=== PATIENT | male | born 1945 | race Caucasian/White ===

== ENCOUNTER 2022-06-09 09:58 | Inpatient (IN) | payer OTHER ==
[~2022-06-09] VITALS: Ht 165.1 cm; Wt 140.0 kg
[~2022-06-09 09:58] MED LIST: ACID REDUCER 1150 MG PO; ALLO100 PO; ATOR20 PO; FURO40 PO; HUMULIN R500 UNIT/1 SQ; LEVSOD100 PO; LOSA50 PO; METF500 PO; TOPROL XL200 MG PO; XARELTO20 MG PO
[2022-06-09 10:31] LABS: BASOPHILS ABSOLUTE AUTO 0.06 K/mm3 (0.00-0.23); BASOPHILS PERCENT AUTO 0 % (0-2); EOSINOPHILS ABSOLUTE AUTO 0.03 K/mm3 (0.00-0.68); EOSINOPHILS PERCENT AUTO 0 % (0-6); Hematocrit 37.2 % (37.0-53.0); IMMATURE GRAN ABSOLUTE AUTO 0.15 K/mm3 (0.00-0.10); IMMATURE GRAN PERCENT AUTO 1 % (0-1); LYMPHOCYTES ABSOLUTE AUTO 1.25 K/mm3 (0.84-5.20); LYMPHOCYTES PERCENT AUTO 6 % (21-46); MONOCYTES ABSOLUTE AUTO 2.33 K/mm3 (0.16-1.47); MONOCYTES PERCENT AUTO 10 % (4-13); Mean Corpuscular HGB 30.8 pg (26.0-34.0); Mean Corpuscular HGB Conc 32.3 g/dL (31.5-36.5); Mean Corpuscular Volume 95 fL (80-100); Mean Platelet Volume 9.9 fL (9.1-12.4); NEUTROPHILS ABSOLUTE AUTO 18.59 K/mm3 (1.96-9.15); NEUTROPHILS PERCENT AUTO 83 % (41-73); Platelet Count 219 K/mm3 (150-400); RDW Standard Deviation 52.6 fL (35.1-46.3); White Blood Cell Count 22.41 K/mm3 (4.00-11.30)
[2022-06-09 10:51] LABS: Source, Urine Clean Catch
[2022-06-09 10:55] LABS: Albumin, Blood 3.2 g/dL (3.4-5.0); Albumin/Globulin Ratio 0.9 (0.8-1.8); Bilirubin, Total 0.6 mg/dL (0.1-1.0); Bun/Creatinine Ratio 31.8 (12.0-20.0); Calcium, Blood 9.7 mg/dL (8.5-10.1); Creatinine, Blood 2.64 mg/dL (0.60-1.20); Globulin, Blood 3.7 g/dL (2.2-4.0); Magnesium, Blood 1.8 mg/dL (1.6-2.4); Potassium, Blood 5.6 mmol/L (3.5-5.5); Total Protein, Blood 6.9 g/dL (6.4-8.2)
[2022-06-09 11:01] LABS: Appearance, Urine Cloudy (Clear); Bilirubin, Urine Neg (Neg); Blood, Urine 4+ (Neg); Color, Urine Yellow (P-Yellow); Glucose Qualitative, Urine Neg (Neg); Ketones, Urine 1+ (Neg); Leukocyte Esterase, Urine 3+ (Neg); Nitrite, Urine Neg (Neg); Protein, Urine 3+ (Neg); Specific Gravity, Urine 1.015 (1.003-1.022); Urobilinogen, Urine NORM (Normal)
[2022-06-09 11:09] LABS: Influenza A, PCR NEGATIVE (NEGATIVE); Influenza B, PCR NEGATIVE (NEGATIVE); Resp Syncytial Virus, PCR NEGATIVE (NEGATIVE); SARS-Cov-2 (COVID-19) PCR, MMC NEGATIVE (NEGATIVE)
[2022-06-09 11:09] LABS: White Blood Cells, Urine 50-100 /hpf (0-5)
[2022-06-09 11:10] LABS: Bacteria Mod /hpf; Squamous Epithelial Cells Rare /hpf (Few)
[2022-06-09 11:11] LABS: Amorphous Light (0-Heavy); Mucus Mod (0-Heavy)
[2022-06-09] MEDS ORDERED: OZEMPIC2 MG/0.75 SC (12:38)
[2022-06-09] MEDS ORDERED: Acetaminophen325 M1 PO (12:40)
[2022-06-09] MEDS ORDERED: AMLO10 PO (12:41)
[2022-06-09] MEDS ORDERED: HYDR10 PO (12:44)
[2022-06-09] MEDS ORDERED: SPIR25 PO (12:45)
[2022-06-09] MEDS ORDERED: PRAZ1 PO (12:47)
[2022-06-09] MEDS ORDERED: FERROUS GLUCON324 M7 PO (12:48)
[2022-06-09] MEDS ORDERED: VITAMIN D31000 UNI1 PO (12:49)
[2022-06-09] MEDS ORDERED: SODBIC650 PO (12:50)
[2022-06-09] MEDS ORDERED: FISH OIL 1,2001 EAC7 PO (12:51)
[2022-06-09] MEDS ORDERED: GONAK (12:52)
[2022-06-09] MEDS ORDERED: ARTIFICIAL TEAR15 M2 OP (12:52)
[2022-06-09] MEDS ORDERED: FINA5 PO (13:47)
--- NOTE | 2022-06-09 18:11 | NUR ---
SHIFT SUMMARY: PT ALERT AND ORIENTED X4. PT VERY PLEASANT AND COOPERATIVE WITH ALL CARE. PT ARRIVED AT 1540 TO MEDICAL FLOOR WITH A DIAGNOSIS OF UTI/SEPSIS. ROCEPHIN GIVEN IN ER. PT INCONTINENT OF BOWEL AND BLADDER. BLOCK PLACED IN ER WITH AN INITAL OUTPUT OF 600. SYSTEMS PLANNER STATED SHE GOT 1000 OUT BEFORE LEAVING ED. PT BLIND IN BOTH EYES AND NEEDS HELP LOCATING ITEMS IN ROOM. PT WEARS CPAP AT ROOM WITH ROOM AIR DURING THE DAY. PT HAS 20G IV IN RIGHT CHEST THAT IS PATENT AND FLUSHING WELL. SALINE LOCKED. BED IN LOWEST POSITION. CALL LIGHT IN REACH. WILL CONTINUE TO MONITOR.
--- NOTE | 2022-06-10 05:12 | NUR ---
SHIFT SUMMARY NOC PT A/OX4. PT PLEASANT COOPERATIVE TO CARE. PT BLOCK PATENT AND DRAINING YELLOW URINE TO GRAVITY. PT HAS WOUND ON MEATUS ON PENIS THAT LOOKS LIKE SKIN TEAR WITH UNDERLYING TISSUE PROTRUDING. HOSPITALIST NOTIFIED AND FLOWMAX AND ABX OINTMENT WERE ORDERED AND GIVEN. WILL PASS TO DAY SHIFT FOR FURTHER TX. PT CURRENTLY RESTING WITH CPAP ON, BED RAILS UP, BED IN LOWEST POSITION, AND CALL LIGHT WITHIN REACH.
[2022-06-10 05:14] LABS: BASOPHILS ABSOLUTE AUTO 0.04 K/mm3 (0.00-0.23); BASOPHILS PERCENT AUTO 0 % (0-2); EOSINOPHILS ABSOLUTE AUTO 0.11 K/mm3 (0.00-0.68); EOSINOPHILS PERCENT AUTO 1 % (0-6); Hematocrit 34.1 % (37.0-53.0); IMMATURE GRAN ABSOLUTE AUTO 0.05 K/mm3 (0.00-0.10); IMMATURE GRAN PERCENT AUTO 0 % (0-1); LYMPHOCYTES ABSOLUTE AUTO 2.07 K/mm3 (0.84-5.20); LYMPHOCYTES PERCENT AUTO 15 % (21-46); MONOCYTES ABSOLUTE AUTO 1.81 K/mm3 (0.16-1.47); MONOCYTES PERCENT AUTO 13 % (4-13); Mean Corpuscular HGB 30.2 pg (26.0-34.0); Mean Corpuscular HGB Conc 32.3 g/dL (31.5-36.5); Mean Corpuscular Volume 94 fL (80-100); Mean Platelet Volume 9.7 fL (9.1-12.4); NEUTROPHILS ABSOLUTE AUTO 9.65 K/mm3 (1.96-9.15); NEUTROPHILS PERCENT AUTO 70 % (41-73); Platelet Count 208 K/mm3 (150-400); RDW Coefficient Variation 14.9 % (11.7-14.2); RDW Standard Deviation 51.5 fL (35.1-46.3); Red Blood Cell Count 3.64 M/mm3 (4.30-5.90); White Blood Cell Count 13.73 K/mm3 (4.00-11.30)
[2022-06-10 05:58] LABS: Albumin, Blood 2.9 g/dL (3.4-5.0); Albumin/Globulin Ratio 0.7 (0.8-1.8); Bilirubin, Total 0.4 mg/dL (0.1-1.0); Bun/Creatinine Ratio 33.5 (12.0-20.0); Calcium, Blood 9.9 mg/dL (8.5-10.1); Creatinine, Blood 2.03 mg/dL (0.60-1.20); Globulin, Blood 4.2 g/dL (2.2-4.0); Potassium, Blood 4.9 mmol/L (3.5-5.5); Total Protein, Blood 7.1 g/dL (6.4-8.2)
--- NOTE | 2022-06-10 18:14 | NUR ---
SHIFT SUMMARY: PATIENT ALERT AND ORIENTED X4. PT VERY PLEASANT AND COOPERATIVE WITH ALL CARE. PT BLOCK PATENT AND DRAINING TO GRAVITY. THERE IS A RASH/WOUND ON PT PENIS. MEDICATING WITH BACITRACIN. PT TOLERATING WELL. PT SON BROUGHT IN DENTURES AND WALKER. PT WAS ABLE TO WALK TO BATHROOM WITH ONE PERSON ASSIST. RECEIVED BLOOD CULTURE FOR GRAM POSITIVE COCCI IN CHAINS. ROCEPHIN DOSE CHANGED TO 2G. PT COMPLETELY BLIND. CALL LIGHT IN REACH. BED IN LOWEST POSITION. WILL CONTINUE TO MONITOR.
--- NOTE | 2022-06-11 03:38 | NUR ---
SHIFT SUMMARY NO OVERNIGHT EVENTS. CLEANSED AND DID BLOCK CARE. APPLIED OINTMENT TO MEATUS, PAINFUL WITH TOUCH. BLOCK DRAINING CLEAR YELLOW URINE. CONTINUES IV ABX. PT USING CPAP AT NIGHT, ROOM AIR WHEN AWAKE. PT IS BLIND. ORIENTED X4, ABLE TO MAKE NEEDS KNOWN. CALL LIGHT IN REACH.
[2022-06-11 05:01] LABS: BASOPHILS ABSOLUTE AUTO 0.04 K/mm3 (0.00-0.23); BASOPHILS PERCENT AUTO 0 % (0-2); EOSINOPHILS ABSOLUTE AUTO 0.39 K/mm3 (0.00-0.68); EOSINOPHILS PERCENT AUTO 4 % (0-6); Hematocrit 32.8 % (37.0-53.0); Hemoglobin 10.8 g/dL (13.5-17.5); IMMATURE GRAN ABSOLUTE AUTO 0.04 K/mm3 (0.00-0.10); IMMATURE GRAN PERCENT AUTO 0 % (0-1); LYMPHOCYTES ABSOLUTE AUTO 2.22 K/mm3 (0.84-5.20); LYMPHOCYTES PERCENT AUTO 24 % (21-46); MONOCYTES ABSOLUTE AUTO 1.63 K/mm3 (0.16-1.47); MONOCYTES PERCENT AUTO 17 % (4-13); Mean Corpuscular HGB 29.9 pg (26.0-34.0); Mean Corpuscular HGB Conc 32.9 g/dL (31.5-36.5); Mean Corpuscular Volume 91 fL (80-100); Mean Platelet Volume 9.6 fL (9.1-12.4); NEUTROPHILS ABSOLUTE AUTO 5.03 K/mm3 (1.96-9.15); NEUTROPHILS PERCENT AUTO 54 % (41-73); Platelet Count 230 K/mm3 (150-400); RDW Standard Deviation 49.9 fL (35.1-46.3); Red Blood Cell Count 3.61 M/mm3 (4.30-5.90); White Blood Cell Count 9.35 K/mm3 (4.00-11.30)
[2022-06-11 06:14] LABS: Bun/Creatinine Ratio 33.3 (12.0-20.0); Calcium, Blood 9.9 mg/dL (8.5-10.1); Creatinine, Blood 1.65 mg/dL (0.60-1.20)
[2022-06-11] MEDS ORDERED: TAMS.4ER PO (14:22)
[2022-06-11] MEDS ORDERED: VISBIOME 112.51 EACH PO (14:23)
[2022-06-11] MEDS ORDERED: CEFD300 PO (14:23)
--- NOTE | 2022-06-11 15:53 | NUR ---
PT DISCHARGED FROM THE UNIT. IV REMOVED. DISCHARGE INSTRUCTIONS REVIEWED. MEDICATIONS FAXED TO [facility], [place] TO DRIVE HOME. PT LEFT UNIT VIA WHEELCHAIR.
== END 2022-06-11 16:06 | disposition home or self-care (01) | DRG 872 ==
LOC: ER 09:58 → MEDS 13:06
PROVIDERS: Emergency Medicine; Family Medicine; ADMIT Internal Medicine
DX: A41.59 Other Gram-negative sepsis (principal); N17.9 Acute kidney failure, unspecified; N10 Acute pyelonephritis; I69.351 Hemiplegia and hemiparesis following cerebral infarction affecting right dominant side; I50.22 Chronic systolic (congestive) heart failure; I13.0 Hypertensive heart and chronic kidney disease with heart failure and stage 1 through stage 4 chronic kidney disease, or unspecified chronic kidney disease; Z20.822 Contact with and (suspected) exposure to COVID-19; E66.9 Obesity, unspecified; G47.33 Obstructive sleep apnea (adult) (pediatric); N18.9 Chronic kidney disease, unspecified; E55.9 Vitamin D deficiency, unspecified; M10.9 Gout, unspecified; R19.7 Diarrhea, unspecified; E11.22 Type 2 diabetes mellitus with diabetic chronic kidney disease; D63.1 Anemia in chronic kidney disease; B96.4 Proteus (mirabilis) (morganii) as the cause of diseases classified elsewhere; Z86.718 Personal history of other venous thrombosis and embolism; Z85.46 Personal history of malignant neoplasm of prostate; Z88.5 Allergy status to narcotic agent; Z88.8 Allergy status to other drugs, medicaments and biological substances; Z91.018 Allergy to other foods; Z98.49 Cataract extraction status, unspecified eye; Z79.4 Long term (current) use of insulin; Z79.01 Long term (current) use of anticoagulants; Z79.899 Other long term (current) drug therapy; W18.39XA Other fall on same level, initial encounter
CPT/HCPCS: 0241U; 36415; 51702; 71045; 80048; 80053; 81001; 82550; 82947; 83036; 83605; 83735; 85025; 87040; 87077; 87086; 87147; 87186; 93005; 93010; 96365-59; 99285-25; A9270; J0696; J1815; J7120

== ENCOUNTER 2022-08-09 13:19 | Observation (INO) | payer OTHER ==
[~2022-08-09] VITALS: Ht 165.1 cm; Wt 138.3 kg
[~2022-08-09 13:19] MED LIST changes: +AMLO10 PO; +ARTIFICIAL TEAR15 M2 OP; +Acetaminophen325 M1 PO; +CEFD300 PO; +FERROUS GLUCON324 M7 PO; +FINA5 PO; +FISH OIL 1,2001 EAC7 PO; +GONAK; +HYDR10 PO; +OZEMPIC2 MG/0.75 SC; +PRAZ1 PO; +SODBIC650 PO; +SPIR25 PO; +TAMS.4ER PO; +VISBIOME 112.51 EACH PO; +VITAMIN D31000 UNI1 PO
[2022-08-09 13:54] LABS: Source, Urine Foley catheter
[2022-08-09 14:15] LABS: Bilirubin, Urine Neg (Neg); Blood, Urine 4+ (Neg); Glucose Qualitative, Urine Neg (Neg); Ketones, Urine Neg (Neg); Leukocyte Esterase, Urine 3+ (Neg); Nitrite, Urine Neg (Neg); Protein, Urine 3+ (Neg); Urobilinogen, Urine NORM (Normal)
[2022-08-09 14:36] LABS: Appearance, Urine Cloudy (Clear); Color, Urine Pale Yellow (P-Yellow)
[2022-08-09 14:38] LABS: White Blood Cells, Urine TNTC /hpf (0-5)
[2022-08-09 14:40] LABS: Bacteria Many /hpf; Squamous Epithelial Cells Not Seen /hpf (Few)
[2022-08-09 14:47] LABS: BASOPHILS ABSOLUTE AUTO 0.04 K/mm3 (0.00-0.23); BASOPHILS PERCENT AUTO 0 % (0-2); EOSINOPHILS ABSOLUTE AUTO 0.53 K/mm3 (0.00-0.68); EOSINOPHILS PERCENT AUTO 5 % (0-6); Hematocrit 31.4 % (37.0-53.0); Hemoglobin 10.4 g/dL (13.5-17.5); IMMATURE GRAN ABSOLUTE AUTO 0.04 K/mm3 (0.00-0.10); IMMATURE GRAN PERCENT AUTO 0 % (0-1); LYMPHOCYTES ABSOLUTE AUTO 2.86 K/mm3 (0.84-5.20); LYMPHOCYTES PERCENT AUTO 29 % (21-46); MONOCYTES ABSOLUTE AUTO 1.67 K/mm3 (0.16-1.47); MONOCYTES PERCENT AUTO 17 % (4-13); Mean Corpuscular HGB 30.5 pg (26.0-34.0); Mean Corpuscular HGB Conc 33.1 g/dL (31.5-36.5); Mean Corpuscular Volume 92 fL (80-100); Mean Platelet Volume 9.5 fL (9.1-12.4); NEUTROPHILS ABSOLUTE AUTO 4.88 K/mm3 (1.96-9.15); NEUTROPHILS PERCENT AUTO 49 % (41-73); Platelet Count 261 K/mm3 (150-400); RDW Coefficient Variation 14.6 % (11.7-14.2); RDW Standard Deviation 49.1 fL (35.1-46.3); Red Blood Cell Count 3.41 M/mm3 (4.30-5.90); White Blood Cell Count 10.02 K/mm3 (4.00-11.30)
[2022-08-09 15:18] LABS: Magnesium, Blood 2.2 mg/dL (1.6-2.4)
[2022-08-09 15:19] LABS: Albumin, Blood 2.7 g/dL (3.4-5.0); Albumin/Globulin Ratio 0.6 (0.8-1.8); Bilirubin, Total 0.4 mg/dL (0.1-1.0); Bun/Creatinine Ratio 28.8 (12.0-20.0); Calcium, Blood 10.1 mg/dL (8.5-10.1); Creatinine, Blood 2.26 mg/dL (0.60-1.20); Globulin, Blood 4.4 g/dL (2.2-4.0); Potassium, Blood 4.7 mmol/L (3.5-5.5); Total Protein, Blood 7.1 g/dL (6.4-8.2)
--- NOTE | 2022-08-10 04:21 | NUR ---
SHIFT SUMMARY 76 YR M ADMITTED ON 08/09/22 FOR UTI. FULL CODE. NO ACUTE CHANGES THIS SHIFT. PT ARRIVED ON THIS UNIT EARLY THIS SHIFT. HE HAS HAD NO C/O PAIN OR DISCOMFORT. PT IS BLIND BUT ONLY ASKS FOR ASSISTANCE WHEN NEEDED. HE IS VERY PLEASANT AND COOPERATIVE. RADHA AREA AND PANIS WERE CLEANSED BY JOURNAL CLERK'S PT IS VERY RED IN THOSE AREAS AND HAD A "YEASTY" SMELL. HE STATES HE FELT MUCH BETTER AFTER BEING CLEANED UP AND POWDER AND BARRIER CREAM APPLIED.
[2022-08-10 04:55] LABS: BASOPHILS ABSOLUTE AUTO 0.04 K/mm3 (0.00-0.23); BASOPHILS PERCENT AUTO 0 % (0-2); EOSINOPHILS ABSOLUTE AUTO 0.36 K/mm3 (0.00-0.68); EOSINOPHILS PERCENT AUTO 4 % (0-6); Hematocrit 31.7 % (37.0-53.0); Hemoglobin 10.4 g/dL (13.5-17.5); IMMATURE GRAN ABSOLUTE AUTO 0.05 K/mm3 (0.00-0.10); IMMATURE GRAN PERCENT AUTO 1 % (0-1); LYMPHOCYTES ABSOLUTE AUTO 2.09 K/mm3 (0.84-5.20); LYMPHOCYTES PERCENT AUTO 22 % (21-46); MONOCYTES ABSOLUTE AUTO 1.48 K/mm3 (0.16-1.47); MONOCYTES PERCENT AUTO 16 % (4-13); Mean Corpuscular HGB 29.7 pg (26.0-34.0); Mean Corpuscular HGB Conc 32.8 g/dL (31.5-36.5); Mean Corpuscular Volume 91 fL (80-100); Mean Platelet Volume 9.7 fL (9.1-12.4); NEUTROPHILS ABSOLUTE AUTO 5.51 K/mm3 (1.96-9.15); NEUTROPHILS PERCENT AUTO 58 % (41-73); Platelet Count 285 K/mm3 (150-400); RDW Coefficient Variation 14.6 % (11.7-14.2); RDW Standard Deviation 47.8 fL (35.1-46.3); White Blood Cell Count 9.53 K/mm3 (4.00-11.30)
[2022-08-10 05:38] LABS: Albumin, Blood 2.7 g/dL (3.4-5.0); Albumin/Globulin Ratio 0.6 (0.8-1.8); Bilirubin, Total 0.3 mg/dL (0.1-1.0); Bun/Creatinine Ratio 31.2 (12.0-20.0); Creatinine, Blood 1.73 mg/dL (0.60-1.20); Globulin, Blood 4.3 g/dL (2.2-4.0); Potassium, Blood 4.6 mmol/L (3.5-5.5)
--- NOTE | 2022-08-10 14:02 | NUR ---
[facility] CALLED TO NOTIFY THIS AUTHOR THAT THEY ARE OUT OF CEFDINIR ORDERED FOR D/C. COMPATIBLE DRUG OFFERED WAS CEFUROXIME 250 MG. VERIFIED THAT THIS WAS AN APPROPRIATE SUB PER OUR PHARMACY. NOTIFIED DR. TOLEDO THAT NEW RX NEEDED TO BE ORDERED. PROVIDER APPROVED SUBSTITUTION. CALLED [facility] BACK, GAVE VERBAL FOR CEFUROXIME 250 MG PO BID X 7 DAYS.
[2022-08-10] MEDS ORDERED: BASAGLAR K100 UNIT/5 SC (16:16)
[2022-08-10] MEDS ORDERED: CEFU250T47 PO (16:17)
[2022-08-10] MEDS ORDERED: METO50ER PO (16:22)
--- NOTE | 2022-08-10 17:55 | NUR ---
PATIENT DISCHARGED TO HOME ACCOMPANIED BY HIS SON KIERRA. IV SALINE LOCK REMOVED BY Makayla PANDYA CNA WITHOUT INCIDENT. PT AND SON VERBALIZED UNDERSTANDING OF D/C INSTRUCTIONS. THIS AUTHOR LEFT MESSAGE AT PCP'S OFFICE TO MAKE FOLLOW UP APPOINTMENT; THEY WILL CALL PATIENT TO SET UP. INDWELLING CATHETER LEFT IN PLACE. [facility]. OFF UNIT VIA OWN W/C AT 1740. NO BELONGINGS LEFT BEHIND IN ROOM.
== END 2022-08-10 17:32 | disposition home health service (06) ==
LOC: ER 13:19 → MEDS 13:20
PROVIDERS: Emergency Medicine; Student in an Organized Health Care Education/Training Program; ADMIT Internal Medicine
DX: N40.1 Benign prostatic hyperplasia with lower urinary tract symptoms (principal); N39.498 Other specified urinary incontinence; R33.8 Other retention of urine; N39.0 Urinary tract infection, site not specified; I95.9 Hypotension, unspecified; E87.5 Hyperkalemia; N17.9 Acute kidney failure, unspecified; I13.0 Hypertensive heart and chronic kidney disease with heart failure and stage 1 through stage 4 chronic kidney disease, or unspecified chronic kidney disease; I50.9 Heart failure, unspecified; E11.22 Type 2 diabetes mellitus with diabetic chronic kidney disease; N18.4 Chronic kidney disease, stage 4 (severe); E66.9 Obesity, unspecified; Z79.899 Other long term (current) drug therapy; Z88.5 Allergy status to narcotic agent; Z88.8 Allergy status to other drugs, medicaments and biological substances; Z91.018 Allergy to other foods; Z79.4 Long term (current) use of insulin; Z79.02 Long term (current) use of antithrombotics/antiplatelets; Z79.890 Hormone replacement therapy; Z86.73 Personal history of transient ischemic attack (TIA), and cerebral infarction without residual deficits
CPT/HCPCS: 36415; 80053; 81001; 82947; 83735; 85025; 87077; 87086; 87186; 93005; 93010; 96361; 96365; 96375; 96376; 99284-25; A9270; G0378; J0610; J0696; J1815; J7030; J7799

== ENCOUNTER 2022-09-09 10:59 | Emergency (ER) | payer OTHER ==
[~2022-09-09] VITALS: Ht 165.1 cm; Wt 131.5 kg
[~2022-09-09 10:59] MED LIST changes: +BASAGLAR K100 UNIT/5 SC; +CEFU250T47 PO; +METO50ER PO
[2022-09-09 13:12] LABS: BASOPHILS ABSOLUTE AUTO 0.05 K/mm3 (0.00-0.23); BASOPHILS PERCENT AUTO 0 % (0-2); EOSINOPHILS ABSOLUTE AUTO 0.48 K/mm3 (0.00-0.68); EOSINOPHILS PERCENT AUTO 4 % (0-6); Hematocrit 35.5 % (37.0-53.0); Hemoglobin 11.2 g/dL (13.5-17.5); IMMATURE GRAN ABSOLUTE AUTO 0.09 K/mm3 (0.00-0.10); IMMATURE GRAN PERCENT AUTO 1 % (0-1); LYMPHOCYTES ABSOLUTE AUTO 2.01 K/mm3 (0.84-5.20); LYMPHOCYTES PERCENT AUTO 16 % (21-46); MONOCYTES ABSOLUTE AUTO 0.99 K/mm3 (0.16-1.47); MONOCYTES PERCENT AUTO 8 % (4-13); Mean Corpuscular HGB 29.6 pg (26.0-34.0); Mean Corpuscular HGB Conc 31.5 g/dL (31.5-36.5); Mean Corpuscular Volume 94 fL (80-100); Mean Platelet Volume 9.9 fL (9.1-12.4); NEUTROPHILS ABSOLUTE AUTO 9.27 K/mm3 (1.96-9.15); NEUTROPHILS PERCENT AUTO 72 % (41-73); Platelet Count 285 K/mm3 (150-400); RDW Coefficient Variation 14.6 % (11.7-14.2); RDW Standard Deviation 50.5 fL (35.1-46.3); Red Blood Cell Count 3.78 M/mm3 (4.30-5.90); White Blood Cell Count 12.89 K/mm3 (4.00-11.30)
[2022-09-09 13:34] LABS: Source, Urine Clean Catch
[2022-09-09 13:38] LABS: Albumin, Blood 3.1 g/dL (3.4-5.0); Albumin/Globulin Ratio 0.7 (0.8-1.8); Bilirubin, Total 0.5 mg/dL (0.1-1.0); Bun/Creatinine Ratio 25.2 (12.0-20.0); Calcium, Blood 10.1 mg/dL (8.5-10.1); Creatinine, Blood 1.39 mg/dL (0.60-1.20); Globulin, Blood 4.3 g/dL (2.2-4.0); Magnesium, Blood 1.8 mg/dL (1.6-2.4); Potassium, Blood 4.3 mmol/L (3.5-5.5); Thyroid Stimulating Hormone 1.64 uIU/mL (0.360-4.800); Total Protein, Blood 7.4 g/dL (6.4-8.2)
[2022-09-09 13:40] LABS: Appearance, Urine Cloudy (Clear); Bilirubin, Urine Neg (Neg); Blood, Urine 1+ (Neg); Color, Urine Yellow (P-Yellow); Glucose Qualitative, Urine 3+ (Neg); Ketones, Urine Neg (Neg); Leukocyte Esterase, Urine 3+ (Neg); Nitrite, Urine Neg (Neg); Protein, Urine 2+ (Neg); Specific Gravity, Urine 1.015 (1.003-1.022); Urobilinogen, Urine NORM (Normal)
[2022-09-09 14:03] LABS: Hyaline Casts 0-2 /lpf (0-2); White Blood Cells, Urine 50-100 /hpf (0-5)
[2022-09-09 14:05] LABS: Red Blood Cells, Urine 0-2 /hpf (0-2)
[2022-09-09 14:06] LABS: Squamous Epithelial Cells Not Seen /hpf (Few)
[2022-09-09 14:07] LABS: Bacteria Many /hpf
== END 2022-09-09 17:42 | disposition home or self-care (01) ==
LOC: ER 10:59
PROVIDERS: Emergency Medicine
DX: R55 Syncope and collapse (principal); R82.81 Pyuria; E11.65 Type 2 diabetes mellitus with hyperglycemia; I13.2 Hypertensive heart and chronic kidney disease with heart failure and with stage 5 chronic kidney disease, or end stage renal disease; I50.9 Heart failure, unspecified; E11.22 Type 2 diabetes mellitus with diabetic chronic kidney disease; N18.30 Chronic kidney disease, stage 3 unspecified; J45.909 Unspecified asthma, uncomplicated; E11.40 Type 2 diabetes mellitus with diabetic neuropathy, unspecified; E66.9 Obesity, unspecified; Z91.018 Allergy to other foods; Z88.5 Allergy status to narcotic agent; Z88.8 Allergy status to other drugs, medicaments and biological substances; Z79.899 Other long term (current) drug therapy; Z79.01 Long term (current) use of anticoagulants; Z79.4 Long term (current) use of insulin; Z86.73 Personal history of transient ischemic attack (TIA), and cerebral infarction without residual deficits; Z68.42 Body mass index [BMI] 45.0-49.9, adult
CPT/HCPCS: 36415; 71045; 80053; 81001; 82947; 83735; 84443; 84484; 85025; 87077; 87086; 87186; 93005; 93010; J7030

== ENCOUNTER 2023-12-13 09:39 | Emergency (ER) | payer OTHER ==
[~2023-12-13] VITALS: Ht 167.6 cm; Wt 133.8 kg
[2023-12-13 10:06] VITALS: BP 131/84
[2023-12-13] MEDS ORDERED: Acetaminophen 325 MG TABLET PO ONE (11:40)
== END 2023-12-13 13:11 | disposition home or self-care (01) ==
LOC: ER 09:39
DX: S22.32XA Fracture of one rib, left side, initial encounter for closed fracture (principal); S80.12XA Contusion of left lower leg, initial encounter; J45.909 Unspecified asthma, uncomplicated; F43.10 Post-traumatic stress disorder, unspecified; I10 Essential (primary) hypertension; I11.9 Hypertensive heart disease without heart failure; I50.9 Heart failure, unspecified; E11.40 Type 2 diabetes mellitus with diabetic neuropathy, unspecified; V59.9XXA Occupant (driver) (passenger) of pick-up truck or van injured in unspecified traffic accident, initial encounter; Z86.73 Personal history of transient ischemic attack (TIA), and cerebral infarction without residual deficits; Z88.5 Allergy status to narcotic agent; Z91.018 Allergy to other foods; Z88.8 Allergy status to other drugs, medicaments and biological substances; Z79.4 Long term (current) use of insulin; Z79.899 Other long term (current) drug therapy
CPT/HCPCS: 51701; 71101; 73590; 99284-25; A9270